=== PATIENT | male | born 1980 | race Caucasian/White ===

== ENCOUNTER 2022-05-10 06:33 | Emergency (ER) | payer BC, SELFPAY ==
[2022-05-10 06:35] VITALS: BP 153/97; PULSE 72; RESP 17; TEMP 36.8; O2SAT 99; BMI 30.4
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
== END 2022-05-10 07:55 | disposition home or self-care (01) ==
PROVIDERS: Emergency Provider Emergency Medicine; PCP Pediatrics; Visit Provider Emergency Medicine
DX: S80.11XA Contusion of right lower leg, initial encounter (principal); V29.88XA Motorcycle rider (driver) (passenger) injured in other specified transport accidents, initial encounter
CPT/HCPCS: 72170; 73552; 73590; 73630; 99283

== ENCOUNTER → 2022-05-19 | Outpatient (CLI) | payer BC, SELFPAY ==
--- NOTE | 2022-05-19 10:07 | MRI_ITS ---
STUDY: MRI RIGHT KNEE REASON FOR EXAM: Medial right knee pain, right knee injury 10 days ago. TECHNIQUE: Standardized fat and water weighted pulse sequences were obtained in all 3 orthogonal planes. COMPARISON: Radiographs 05/16/2022. FINDINGS: Normal medial meniscus. Normal hyaline cartilage of the medial femorotibial compartment. Normal medial femoral condyle and tibial plateau. There is a low-grade partial tear of the medial collateral ligament (T2 coronal image 13). Normal distal semimembranosus, gracilis and semitendinosus tendons. Normal lateral meniscus. Normal hyaline cartilage of the lateral femorotibial compartment. Normal lateral femoral condyle and tibial plateau. Normal proximal tibiofibular articulation. Normal lateral collateral (fibular) ligament. Normal popliteus tendon. Normal biceps femoris tendon. Normal anterior cruciate ligament (ACL). Normal posterior cruciate ligament (PCL). Normal congruent patellofemoral articulation. Normal hyaline cartilage of the patellofemoral compartment. Normal medial and lateral patellar retinaculum. Normal visualized quadriceps tendon. There is tendon thickening of the distal patellar tendon, with a corticated osseous fragment of the anterior tibial tubercle, consistent with a sequela of remote Marsing-Schlatter''s disease (proton-density sagittal images 18-22). Normal Hoffa''s fat pad. There is a small joint effusion. There is mild edema in the medial subcutis adipose space. There is a small enchondroma in the distal femoral metaphysis (T2 coronal image 12) measuring 0.6 cm in length. MRI/Lower Ext Joint Only (Routine) IMPRESSION: Low-grade partial tear of the medial collateral ligament. Small joint effusion. Sequelae of remote Kim-Schlatter''s disease. 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 Electronically Signed: Wagner Marquez MD at 13:18 EDT ,
== END | disposition home or self-care (01) ==
LOC: MRI 10:07
PROVIDERS: PCP Family Medicine; Visit Provider Orthopaedic Surgery
DX: S83.411A Sprain of medial collateral ligament of right knee, initial encounter (principal); M23.91 Unspecified internal derangement of right knee
CPT/HCPCS: 73721

== ENCOUNTER → 2022-06-20 | Outpatient (CLI) | payer BC, SELFPAY ==
[2022-06-20 08:35] LABS: Lyme Ab Screen Interpretation REF LAB
[2022-06-21 20:04] LABS: Lyme Scn Total Ab w/Rflx Negative (Negative)
== END | disposition home or self-care (01) ==
PROVIDERS: PCP Family Medicine; Referring Provider Orthopaedic Surgery; Visit Provider Orthopaedic Surgery
DX: T78.40XA Allergy, unspecified, initial encounter (principal); M25.40 Effusion, unspecified joint; W57.XXXA Bitten or stung by nonvenomous insect and other nonvenomous arthropods, initial encounter
CPT/HCPCS: 36415; 86618

== ENCOUNTER 2022-08-11 17:30 | Outpatient (RCR) | payer BC, SELFPAY ==
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
--- NOTE | 2022-07-07 17:04 | HP.PTREVAL ---
Dr. Jaylen Aaron, DO, It has been my pleasure to treat SHIRLENE PASTRANA over the last 9 visits for R MCL tear and ankle sprain. Please see the progress note below for an update on the physical therapy plan of care! Subjective: Pt reports R knee is the sore spot today. Ankle is not as bad Objective/Function: R knee pain 4/10, R ankle pain 3/10. Pt still has difficulty with sleep at this time secondary to pain. R knee ROM: 0-20-115 degrees. R ankle DF ROM: 2 degrees. R ankle MMT: DF and PF= 5/5, Inversion and Eversion= 4/5. R knee MMT: 4/5 throughout. Pt is showing significant improvements with strength and ROM at this time. Plan Plan: Continue with : R knee: stretching and strengthening, balance and proprio, bike, and HEP. R ankle: PROM and mobs, stretching and strengthening, balance and proprio, nustep. Balance/Gait/Functional tests - Balance/Special Test Scores Lower Extremity Functional Score: 36 Goals Goal 1:: Decrease R knee and ankle pain x 50% to aid with sleep Goal Time Frame: 4-6 Weeks Goal Progress: Progressing Goal 2:: Increase R knee ROM x 15 degrees to aid with restoring a more normalized gait pattern Goal Time Frame: 4-6 Weeks Goal Progress: Progressing Goal 3:: Increase R ankle DF ROM x 5-10 degrees to aid with restoring a more normalized gait pattern Goal Time Frame: 4-6 Weeks Goal 4:: Increase R ankle and knee strength x 1 grade to aid with return to work without limitation Goal Time Frame: 4-6 Weeks Goal Progress: Progressing Goal 5:: I with HEP Goal Time Frame: 4-6 Weeks Goal Progress: Progressing Anticipated Interventions Patient/Client Instruction: Educate patient on: Condition, Plan of Care For the Purpose of:: To improve self management Therapeutic Exercise to Include: Strength training, Endurance training, Balance training, Flexibilty training, Gait and locomotor training, Passive ROM, Active ROM, Dynamic Lumbar Stabilization For the Purpose of:: To decrease pain, To increase ROM, To improve muscle performance and motor function Cryotherapy (ice pack, ice massage): Yes For the Purpose of:: To decrease pain Please do not hesitate to contact me at [phone] by phone or if you have questions or concerns regarding this new plan of care! Sincerely, Stanley Yates, PT, ATC
--- NOTE | 2022-08-11 18:03 | HP.PTDCSUM_ITS ---
It has been my pleasure to treat SHIRLENE PASTRANA referred by Dr. Jaylen Aaron, DO, with the diagnosis of R MCL tear and ankle sprain for a total of 20 visit(s). Discharge Date: Please see the following information for a summary of their discharge status. Subjective: I am ready for discharge R knee Pain Intensity (Out of 10): 0 R ankle Pain Intensity (Out of 10): 0 % Improvement: 90 Objective/Function: R LE pain 0/10. R ankle DF ROM 12 degrees. R knee ROM 0- 128 degrees. R ankle and knee MMT: 5/5 throughout. Pt is I with HEP and has achieved all Rx goals Goal 1:: Decrease R knee and ankle pain x 50% to aid with sleep Goal Progress: Goal Met Goal 2:: Increase R knee ROM x 15 degrees to aid with restoring a more normalized gait pattern Goal Progress: Goal Met Goal 3:: Increase R ankle DF ROM x 5-10 degrees to aid with restoring a more normalized gait pattern Goal Progress: Goal Met Goal 4:: Increase R ankle and knee strength x 1 grade to aid with return to work without limitation Goal Progress: Goal Met Goal 5:: I with HEP Goal Progress: Goal Met Plan: Discharge to HEP If there are questions or concerns regarding this patient's physical therapy, please feel free to call me at [phone]. Thank you for the referral of this patient. Sincerely, Stanley Yates, PT, ATC Balance/Gait/Functional tests - Balance/Special Test Scores Lower Extremity Functional Score: 77
== END 2022-08-11 19:00 | disposition home or self-care (01) ==
LOC: PT 17:30
PROVIDERS: PCP Family Medicine; Referring Provider Orthopaedic Surgery; Visit Provider Orthopaedic Surgery
DX: S83.411D Sprain of medial collateral ligament of right knee, subsequent encounter (principal); S93.401D Sprain of unspecified ligament of right ankle, subsequent encounter
CPT/HCPCS: 97110; 97161; 97164